=== PATIENT | male | born 1950 | race Two or more races ===

== ENCOUNTER → 2024-09-07 | Outpatient (CLI) | payer MEDICARE, SELFPAY ==
--- NOTE | 2024-09-07 12:09 | XR_ITS ---
Examination: Lumbar spine 3 views Technique one AP lateral coned lateral lower lumbar spine 3 views Exam date and time: 04/07/2024 1241 hours Comparison November 22, 2005 INDICATIONS: Low back pain beginning 2 months ago FINDINGS: Severe osteopenia Advanced degenerative disc disease L1-L2, L2-L3 with moderate lumbar spondylosis No spondylolisthesis IMPRESSION: Interval advanced degenerative disc disease L1-L2, L2-L3
== END | disposition home or self-care (01) ==
PROVIDERS: PCP Physician Assistant Medical; Referring Provider Physician Assistant Medical; Visit Provider Physician Assistant Medical
DX: M51.369 Other intervertebral disc degeneration, lumbar region without mention of lumbar back pain or lower extremity pain (principal)
CPT/HCPCS: 72100

== ENCOUNTER → 2024-11-17 | Outpatient (CLI) | payer OTHER, MEDICAID, SELFPAY ==
--- NOTE | 2024-11-17 12:30 | XR_ITS ---
Examination: MRI lumbar spine without contrast Date and time of exam: November 17, 2024 1150 hrs. Indications: Lower back pain one year Technique: Multiple MRI axial and sagittal sections lumbar spine. Sagittal T2-weighted images, TR 3500, TE 118 T1 weighted transverse sections, TR 688 T8.5, T2-weighted sagittal sections T1 weighted sagittal sections TR 621, TE 30 T2 axial sections, TR 4, 190, TE 84. Findings: Advanced disc narrowing L1-L2, L2-L3 Chronic compression T12 Diffuse lumbar disc desiccation L5-S1 no disc protrusion L4-5 no disc protrusion L3-L4 2 mm central lumbar disc bulge L2-L3 small foraminal disc bulges L1 L2 1 small foraminal disc bulges Impression: Advanced degenerative disc disease L1-L2, L2-L3
== END | disposition home or self-care (01) ==
LOC: SMRI 11:39
PROVIDERS: Referring Provider Physician Assistant; Visit Provider Physician Assistant
DX: M51.369 Other intervertebral disc degeneration, lumbar region without mention of lumbar back pain or lower extremity pain (principal)
CPT/HCPCS: 72148

== ENCOUNTER 2025-06-27 16:17 | Emergency (ER) | payer OTHER, MEDICAID, SELFPAY ==
[2025-06-27 16:20] VITALS: BP 149/75; PULSE 73; RESP 18; TEMP 36.6; O2SAT 95; BMI 23.6
[2025-06-27 16:25] VITALS: PULSE 76; RESP 20; O2SAT 97; BMI 22.8
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
[2025-06-27 17:04] LABS: Basophils # (Auto) 0.1 Thou/mm3 (0.0-0.2); Basophils % (Auto) 1 % (0-2.5); Eosinophils # (Auto) 0.8 Thou/mm3 (0.0-0.5); Eosinophils % (Auto) 11 % (0-10); Hematocrit 44.1 % (41.0-53.0); Hemoglobin 15.0 g/dL (13.5-16.0); Immature Granulocytes Auto 0.04 Thou/mm3 (0.00-0.00); Lymphocytes # (Auto) 1.6 Thou/mm3 (1.0-4.8); Lymphocytes % (Auto) 23 % (10-50); Mean Corpuscular HGB Conc 34.0 g/dl (31.0-37.0); Mean Corpuscular Hemoglobin 31.8 pg (25.0-35.0); Mean Corpuscular Volume 93 fL (80-100); Monocytes # (Auto) 1.1 Thou/mm3 (0.0-0.8); Monocytes % (Auto) 16 % (0-12); Neutrophils # (Auto) 3.4 Thou/mm3 (1.8-7.7); Neutrophils % (Auto) 49 % (37-80); Nucleated Red Blood Cell # 0.00 Thou/mm3 (0.00-0.00); Nucleated Red Blood Cell % 0 /100 WBC (0); Platelet Count 231 Thou/mm3 (140-440); RDW Standard Deviation 43.0 fL (35.1-43.9); Red Blood Count 4.72 Miln/mm3 (4.50-5.90); White Blood Count 7.0 Thou/mm3 (3.8-10.6)
[2025-06-27 17:22] LABS: Alanine Aminotransferase 16 U/L (10-49); Albumin, Serum 4.6 gm/dL (3.4-4.8); Albumin/Globulin Ratio 1.8 (1.2-2.2); Alkaline Phosphatase 124 U/L (46-116); Anion Gap 9 (7-16); Aspartate Amino Transferase 23 U/L (0-34); BUN/Creatinine Ratio 12 Ratio (12-20); Bilirubin,Total 0.5 mg/dL (0.3-1.2); Blood Urea Nitrogen 14 mg/dL (9-23); Calcium 9.7 mg/dL (8.3-10.6); Calcium (Corrected) 9.7 mg/dL (8.5-10.1); Carbon Dioxide 29.6 mMol/L (20.0-31.0); Chloride 104 mMol/L (98-107); Creatinine (Component) 1.2 mg/dL (0.6-1.3); Estimated Creatinine Clearance 53.5 mL/min (>60); Globulin 2.5 gm/dL (2.3-3.5); Glucose 134 mg/dL (74-106); Osmolality,Calculated 287 (275-295); Potassium 4.1 mMol/L (3.4-5.1); Sodium 143 mMol/L (136-145); Total Protein 7.1 gm/dL (5.7-8.2); eGFR > 60 See Note
[2025-06-27 17:23] LABS: INR 1.0 (0.9-1.3); Partial Thromboplastin Time 27.6 Seconds (22.0-36.0); Prothrombin Time 11.1 Seconds (9.0-12.2)
[2025-06-27 18:16] VITALS: BP 161/82; PULSE 71; RESP 18; TEMP 36.7; O2SAT 95
[2025-06-27 19:07] VITALS: BP 145/72; PULSE 69; RESP 18; O2SAT 95
== END 2025-06-27 19:19 | disposition home or self-care (01) ==
PROVIDERS: Registered Nurse General Practice; Emergency Provider Family Medicine; PCP Physician Assistant
DX: S29.9XXA Unspecified injury of thorax, initial encounter (principal); E11.9 Type 2 diabetes mellitus without complications; I10 Essential (primary) hypertension; V43.52XA Car driver injured in collision with other type car in traffic accident, initial encounter; Y92.410 Unspecified street and highway as the place of occurrence of the external cause; Z79.84 Long term (current) use of oral hypoglycemic drugs
CPT/HCPCS: 36415; 71260; 74177; 80053; 85025; 85610; 85730; 99283; A4649; Q9967